=== PATIENT | female | born 1995 | race Two or more races ===

== ENCOUNTER 2018-04-24 08:49 | Emergency (ER) | payer OTHER ==
[~2018-04-24] VITALS: Ht 157.5 cm; Wt 49.9 kg
[2018-04-24] MEDS ORDERED: Sodium Chloride 500ML 500 ML IV ONE (09:31)
--- NOTE | 2018-04-24 09:43 | Emergency Room Report ---
History of Present Illness General Chief Complaint: Abdominal Pain Source: Patient Present Illness HPI 22-year-old female presents ED complaining of abdominal pain with vomiting and diarrhea. Started today. Patient states this is the first day of her period and states that sometimes she gets increased pain and diarrhea with her periods. Pain is cramping, 6 out of 10, nonradiating. Notes nausea and vomiting. Denies sick contacts or recent travel. Denies recent antibiotic use. No other aggravating relieving factors. Denies any other associated symptoms Allergies: Coded Allergies: No Known Allergies (Unverified , 04/24/18) Patient History Past Medical History: none Past Surgical History: none Pertinent Family History: none Social History: Denies: smoking, alcohol use, drug use Last Menstrual Period: 04/24/18 Now: No Immunizations: UTD Reviewed Nursing Documentation: PMH: Agreed; PSxH: Agreed Nursing Documentation-PMH Past Medical History: No History, Except For Review of Systems All Other Systems: negative except mentioned in HPI Physical Exam Vital Signs Date Time Temp Pulse Resp B/P (MAP) Pulse Ox O2 Delivery O2 Flow Rate FiO2 04/24/18 09:14 98.6 68 18 97/70 100 Room Air 98.6 Sp02 EP Interpretation: reviewed, normal General Appearance: no apparent distress, alert, GCS 15, non-toxic Head: normocephalic, atraumatic Eyes: bilateral eye normal inspection, bilateral eye PERRL ENT: hearing grossly normal, normal pharynx, no angioedema, normal voice Neck: full range of motion, supple/symm/no masses Respiratory: chest non-tender, lungs clear, normal breath sounds, speaking full sentences Cardiovascular #1: regular rate, rhythm, no edema Cardiovascular #2: 2+ carotid (R), 2+ carotid (L), 2+ radial (R), 2+ radial (L) , 2+ dorsalis pedis (R), 2+ dorsalis pedis (L) Gastrointestinal: normal bowel sounds, soft, non-distended, no guarding, no rebound, tenderness - suprapubic Rectal: deferred Genitourinary: normal inspection, no CVA tenderness Musculoskeletal: back normal, gait/station normal, normal range of motion, non- tender Neurologic: alert, oriented x3, responsive, motor strength/tone normal, sensory intact, speech normal Psychiatric: judgement/insight normal, memory normal, mood/affect normal, no suicidal/homicidal ideation Reflexes: 3+ bicep (R), 3+ bicep (L), 3+ tricep (R), 3+ tricep (L), 3+ knee (R) , 3+ knee (L) Skin: normal color, no rash, warm/dry, well hydrated Lymphatic: no adenopathy Medical Decision Making Diagnostic Impression: Primary Impression: Menstrual cramps Additional Impression: Anemia Qualified Codes: D64.9 - Anemia, unspecified ER Course Hospital Course 22-year-old F presents to ED with cramping abdominal pain with vomiting, diarrhea differential diagnosis: gastritis, SBO, cholecystits, gastroenteritis Clinical course Patient placed on stretcher. On six pack packer. After initial history and physical I ordered labs, IV fluids, GI cocktail, Zantac Labs - no leukocytosis, Hb 8.1 Hct 28, electrolytes ok, LFTs normal, UA unremarkable Upon reassessment, patient states pain has improved. Patient states his exacerbation of her menstrual cramps. Patient is somewhat anemic on lab work. Vital stable. States her period started today. States overall her periods are heavier. States that she's been told she is anemic in the past however does not know her specific lab numbers. I do not believe patient requires admission at this time however we will prescribe iron and provide [employer] referrals. Patient states she does have a PMD she can follow-up with. I feel this is a highly complex case requiring extensive working including EKG/ Rhythm strip, Xray/CT/US, Blood/urine lab work, repeat exams while in ED, and administration of strong opiates/narcotics for pain control, admission to hospital or close patient follow up. Diagnosis - menstrual cramps, anemia Stable and discharged to home with prescriptions for Zantac, zofran, bentyl, tylenol #3, ferrous sulfate. Followup with PMD/ OBGYN. Return to ED if symptoms recur or worsen Labs Test 04/24/18 09:23 04/24/18 09:35 Urine Color Yellow Urine Appearance Clear Urine pH 6 (4.5-8.0) Urine Specific [place] 1.020 (1.005-1.035) Urine Protein 1+ (NEGATIVE) Urine Glucose (UA) Negative (NEGATIVE) Urine Ketones Negative (NEGATIVE) Urine Occult Blood 5+ (NEGATIVE) Urine Nitrite Negative (NEGATIVE) Urine Bilirubin Negative (NEGATIVE) Urine Urobilinogen Normal MG/DL (0.0-1.0) Urine Leukocyte Esterase 1+ (NEGATIVE) Urine RBC 5-10 /HPF (0 - 2) Urine WBC 2-4 /HPF (0 - 2) Urine Squamous Epithelial Cells Occasional /LPF Urine Bacteria Few /HPF (NONE) Urine Mucus Few /LPF (NONE/OCC) Urine HCG, Qualitative Negative (NEGATIVE) White Blood Count 9.4 K/UL (4.8-10.8) Red Blood Count 4.31 M/UL (4.20-5.40) Hemoglobin 8.1 G/DL (12.0-16.0) Hematocrit 28.0 % (37.0-47.0) Mean Corpuscular Volume 65 FL (80-99) Mean Corpuscular Hemoglobin 18.9 PG (27.0-31.0) Mean Corpuscular Hemoglobin Concent 29.1 G/DL (32.0-36.0) Red Cell Distribution Width 16.5 % (11.6-14.8) Platelet Count 286 K/UL (150-450) Mean Platelet Volume 5.3 FL (6.5-10.1) Neutrophils (%) (Auto) 81.9 % (45.0-75.0) Lymphocytes (%) (Auto) 11.6 % (20.0-45.0) Monocytes (%) (Auto) 5.8 % (1.0-10.0) Eosinophils (%) (Auto) 0.2 % (0.0-3.0) Basophils (%) (Auto) 0.5 % (0.0-2.0) Sodium Level 139 MMOL/L (136-145) Potassium Level 3.7 MMOL/L (3.5-5.1) Chloride Level 102 MMOL/L (98-107) Carbon Dioxide Level 25 MMOL/L (21-32) Anion Gap 12 mmol/L (5-15) Blood Urea Nitrogen 12 mg/dL (7-18) Creatinine 0.6 MG/DL (0.55-1.30) Estimat Glomerular Filtration Rate > 60 mL/min (>60) Glucose Level 100 MG/DL (74-106) Calcium Level 8.5 MG/DL (8.5-10.1) Total Bilirubin 0.2 MG/DL (0.2-1.0) Aspartate Amino Transf (AST/SGOT) 17 U/L (15-37) Alanine Aminotransferase (ALT/SGPT) 21 U/L (12-78) Alkaline Phosphatase 48 U/L (46-116) Total Protein 8.0 G/DL (6.4-8.2) Albumin 4.1 G/DL (3.4-5.0) Globulin 3.9 g/dL Albumin/Globulin Ratio 1.1 (1.0-2.7) Lipase 107 U/L (73-393) Last Vital Signs Date Time Temp Pulse Resp B/P (MAP) Pulse Ox O2 Delivery O2 Flow Rate FiO2 04/24/18 09:14 98.6 68 18 97/70 100 Room Air 98.6 Status: improved Disposition: HOME, SELF-CARE Condition: Stable Scripts Acetaminophen With Codeine (T#3) (TYLENOL #3 TAB*) Y Tab 1 TAB ORAL Q4H PRN for For Pain, #20 TAB Prov: Gerber David MD 04/24/18 Ondansetron Odt* (ZOFRAN ODT*) 4 Mg Tab.rapdis 4 MG BC EVERY 6 HOURS PRN for Nausea & Vomiting, #30 TAB 0 Refills Prov: Gerber David MD 04/24/18 Ranitidine Hcl* (ZANTAC*) 150 Mg Tablet 150 MG ORAL TWICE A DAY, #30 TAB Prov: Gerber David MD 04/24/18 Dicyclomine Hcl* (DICYCLOMINE HCL*) 10 Mg Capsule 10 MG PO QID, #20 CAP Prov: Gerber David MD 04/24/18 Ferrous Sulfate* (FERROUS SULFATE*) 325 Mg Tablet 325 MG ORAL DAILY, #30 TAB 0 Refills Prov: Gerber David MD 04/24/18 Gerber David MD Apr 24, 2018 09:43
[2018-04-24] MEDS ORDERED: Mylanta II UD 30ml ORAL ONE (09:45)
[2018-04-24] MEDS ORDERED: Lidocaine 2% Visc 15ml soln ORAL ONE (09:45)
[2018-04-24] MEDS ORDERED: Dicyclomine HCl 10mg/5ml oral soln ORAL ONE (09:45)
[2018-04-24 09:47] LABS: APPEARANCE,URINE CLEAR; BILIRUBIN, URINE NEGATIVE (NEGATIVE); GLUCOSE, URINE (UA) NEGATIVE (NEGATIVE); KETONES,URINE NEGATIVE (NEGATIVE); LEUKOCYTE ESTERASE ,URINE 1+ (NEGATIVE); NITRITE,URINE NEGATIVE (NEGATIVE); PH,URINE 6 (4.5-8.0); PROTEIN,URINE 1+ (NEGATIVE); UROBILINOGEN,URINE NORMAL MG/DL (0.0-1.0)
[2018-04-24 09:48] VITALS: BP 91/68
[2018-04-24 09:52] LABS: COLOR,URINE YELLOW
[2018-04-24 09:55] LABS: BASOPHILS % (AUTO) 0.5 % (0.0-2.0); EOSINOPHILS % (AUTO) 0.2 % (0.0-3.0); HEMOGLOBIN 8.1 G/DL (12.0-16.0); LYMPHOCYTES % (AUTO) 11.6 % (20.0-45.0); MEAN CORPUSCULAR VOLUME 65 FL (80-99); MONOCYTES % (AUTO) 5.8 % (1.0-10.0); NEUTROPHILS % (AUTO) 81.9 % (45.0-75.0); PLATELET COUNT 286 K/UL (150-450); RED BLOOD COUNT 4.31 M/UL (4.20-5.40); RED CELL DISTRIBUTION WIDTH 16.5 % (11.6-14.8); WHITE BLOOD COUNT 9.4 K/UL (4.8-10.8)
[2018-04-24 10:00] LABS: ANION GAP 12 mmol/L (5-15); BLOOD UREA NITROGEN 12 mg/dL (7-18); CALCIUM 8.5 MG/DL (8.5-10.1); CARBON DIOXIDE 25 MMOL/L (21-32); CHLORIDE 102 MMOL/L (98-107); CREATININE 0.6 MG/DL (0.55-1.30); POTASSIUM 3.7 MMOL/L (3.5-5.1); SODIUM 139 MMOL/L (136-145)
[2018-04-24 10:05] LABS: ALANINE AMINOTRANSFERASE 21 U/L (12-78); ALBUMIN 4.1 G/DL (3.4-5.0); ALBUMIN/GLOBULIN RATIO 1.1 (1.0-2.7); ALKALINE PHOSPHATASE 48 U/L (46-116); ASPARTATE AMINO TRANSFERASE 17 U/L (15-37); BILIRUBIN,TOTAL 0.2 MG/DL (0.2-1.0)
[2018-04-24 10:28] VITALS: BP 96/71
[2018-04-24] MEDS ORDERED: ACETAMINOPHEN-1 EAC1 ORAL (10:31)
[2018-04-24] MEDS ORDERED: FERROUS SULFAT325 MG ORAL (10:31)
[2018-04-24] MEDS ORDERED: DICYCLOMINE HCL10 MG PO (10:31)
[2018-04-24] MEDS ORDERED: ONDANSETRON ODT4 MG BC (10:31)
[2018-04-24] MEDS ORDERED: RANITIDINE HCL150 MG ORAL (10:31)
[2018-04-24 10:38] VITALS: BP 96/71
== END 2018-04-24 10:40 | disposition home or self-care (01) ==
LOC: EMR 10:07
DX: N94.6 Dysmenorrhea, unspecified (principal); D64.9 Anemia, unspecified; R19.7 Diarrhea, unspecified; R11.10 Vomiting, unspecified
CPT/HCPCS: 36415; 80053; 81003; 81025; 83690; 85025; 96374; 96375; 99284; J2405; J7040; S0028

== ENCOUNTER 2018-05-15 01:37 | Emergency (ER) | payer OTHER ==
[~2018-05-15] VITALS: Ht 154.9 cm; Wt 45.4 kg
[~2018-05-15 01:37] MED LIST: ACETAMINOPHEN-1 EAC1 ORAL; DICYCLOMINE HCL10 MG PO; FERROUS SULFAT325 MG ORAL; ONDANSETRON ODT4 MG BC; RANITIDINE HCL150 MG ORAL
[2018-05-15 01:59] VITALS: BP 104/69
[2018-05-15] MEDS ORDERED: Ketorolac 30mg Inj IV ONE (02:00)
[2018-05-15] MEDS ORDERED: Isovue-300 100ml vial INJ PRN (02:00)
--- NOTE | 2018-05-15 02:02 | Emergency Room Report ---
History of Present Illness General Chief Complaint: Abdominal Pain Source: Patient Present Illness HPI Is a 22-year-old female with no significant past medical history. She presents with acute onset of lower quadrant abdominal pain about 30-40 minutes ago. Pain is sharp 10 out of 10 and comes in waves. Never had this problem before. No nausea no vomiting. Denies any trauma. She had midcycle. No nausea no vomiting. No diarrhea. No urinary complaint. No vaginal bleeding or discharge. Allergies: Coded Allergies: No Known Allergies (Unverified , 05/15/18) Patient History Past Medical History: see triage record, old chart reviewed Past Surgical History: none Pertinent Family History: none Social History: Denies: smoking Last Menstrual Period: 3 weeks ago Now: No Immunizations: other Reviewed Nursing Documentation: PMH: Agreed; PSxH: Agreed Nursing Documentation-PMH Past Medical History: No History, Except For Review of Systems Eye: Denies: eye pain, blurred vision ENT: Denies: ear pain, nose congestion, throat swelling Respiratory: Denies: cough, shortness of breath Cardiovascular: Denies: chest pain, palpitations Gastrointestinal: Reports: abdominal pain; Denies: diarrhea, nausea, vomiting Musculoskeletal: Denies: back pain, joint pain Skin: Denies: rash Neurological: Denies: headache, numbness Endocrine: Denies: increased thirst, increased urine Hematologic/Lymphatic: Denies: easy bruising All Other Systems: negative except mentioned in HPI Physical Exam Vital Signs Date Time Temp Pulse Resp B/P (MAP) Pulse Ox O2 Delivery O2 Flow Rate FiO2 05/15/18 01:51 97.7 69 26 103/72 100 Room Air 97.7 vitals unremarkable Sp02 EP Interpretation: reviewed, normal General Appearance: well appearing, no apparent distress, alert Head: normocephalic, atraumatic Eyes: bilateral eye PERRL, bilateral eye EOMI ENT: hearing grossly normal, normal pharynx Neck: full range of motion, supple, no meningismus Respiratory: chest non-tender, lungs clear, normal breath sounds Cardiovascular #1: regular rate, rhythm, no murmur Gastrointestinal: normal bowel sounds, no mass, no organomegaly, no bruit, non- distended, tenderness Musculoskeletal: back normal, gait/station normal, normal range of motion Neurologic: alert, oriented x3 Psychiatric: anxious Skin: warm/dry Medical Decision Making Diagnostic Impression: Primary Impression: Abdominal pain Qualified Codes: R10.30 - Lower abdominal pain, unspecified Additional Impressions: UTI (urinary tract infection) Qualified Codes: N30.00 - Acute cystitis without hematuria Ovarian cyst Qualified Codes: N83.209 - Unspecified ovarian cyst, unspecified side Anemia Qualified Codes: D64.9 - Anemia, unspecified ER Course Patient presents with abdominal pain. Most likely a small ovarian cyst rupture. No evidence of acute abdomen. No evidence of appendicitis. No obstruction. No evidence of ectopic or TOA. She is better now. We'll discharge home. Lab Results Impression labs unremarkable CT/MRI/US Diagnostic Results CT/MRI/US Diagnostic Results : Imaging Test Ordered: CT abdomen and pelvis Impression Read by radiologist. Large amount of stool. Trace free fluid in the cul-de- sac. 2 cm right ovarian cyst. No appendicitis. Last Vital Signs Date Time Temp Pulse Resp B/P (MAP) Pulse Ox O2 Delivery O2 Flow Rate FiO2 05/15/18 01:51 97.7 69 26 103/72 100 Room Air 97.7 Status: improved Disposition: HOME, SELF-CARE Condition: Stable Scripts Ibuprofen* (MOTRIN*) 600 Mg Tablet 600 MG ORAL Q8H PRN for For Pain, #30 TAB 0 Refills Prov: AARON CAMP M.D. 05/15/18 Additional Instructions: Follow-up with your in 2-3 days of not better. Return if worse. AARON CAMP M.D. May 15, 2018 02:02
[2018-05-15 02:11] LABS: APPEARANCE,URINE CLEAR; BILIRUBIN, URINE NEGATIVE (NEGATIVE); COLOR,URINE PALE YELLOW; GLUCOSE, URINE (UA) NEGATIVE (NEGATIVE); KETONES,URINE NEGATIVE (NEGATIVE); NITRITE,URINE NEGATIVE (NEGATIVE); PH,URINE 7 (4.5-8.0); PROTEIN,URINE NEGATIVE (NEGATIVE); UROBILINOGEN,URINE NORMAL MG/DL (0.0-1.0)
[2018-05-15 02:30] LABS: LEUKOCYTE ESTERASE ,URINE 2+ (NEGATIVE)
[2018-05-15 02:32] LABS: BASOPHILS % (AUTO) 0.6 % (0.0-2.0); EOSINOPHILS % (AUTO) 0.9 % (0.0-3.0); HEMATOCRIT 31.7 % (37.0-47.0); LYMPHOCYTES % (AUTO) 53.2 % (20.0-45.0); MEAN CORPUSCULAR VOLUME 66 FL (80-99); MONOCYTES % (AUTO) 6.7 % (1.0-10.0); NEUTROPHILS % (AUTO) 38.6 % (45.0-75.0); PLATELET COUNT 247 K/UL (150-450); RED BLOOD COUNT 4.82 M/UL (4.20-5.40); RED CELL DISTRIBUTION WIDTH 18.4 % (11.6-14.8); WHITE BLOOD COUNT 6.9 K/UL (4.8-10.8)
[2018-05-15 02:38] LABS: ANION GAP 11 mmol/L (5-15); BLOOD UREA NITROGEN 12 mg/dL (7-18); CARBON DIOXIDE 24 MMOL/L (21-32); CHLORIDE 103 MMOL/L (98-107); CREATININE 0.7 MG/DL (0.55-1.30); POTASSIUM 3.3 MMOL/L (3.5-5.1); SODIUM 138 MMOL/L (136-145)
[2018-05-15 02:44] LABS: ALANINE AMINOTRANSFERASE 19 U/L (12-78); ALBUMIN 4.2 G/DL (3.4-5.0); ALBUMIN/GLOBULIN RATIO 1.1 (1.0-2.7); ALKALINE PHOSPHATASE 51 U/L (46-116); ASPARTATE AMINO TRANSFERASE 14 U/L (15-37); BILIRUBIN,TOTAL 0.2 MG/DL (0.2-1.0)
[2018-05-15] MEDS ORDERED: IBUPROFEN600 MG ORAL (03:49)
[2018-05-15 03:50] VITALS: BP 96/58
[2018-05-15] MEDS ORDERED: MACROBID100 MG ORAL (03:54)
[2018-05-15 04:00] VITALS: BP 96/58
--- NOTE | 2018-05-15 10:01 | Diagnostic Imaging Report ---
Clinical Indication: Mid abdominal pain for one hour Technique: No oral contrast utilized, per emergency room physician request IV administration nonionic contrast. Venous phase spiral acquisition obtained through the abdomen and pelvis. Multiplanar reconstructions were generated. Total dose length product 534.88 mGycm. CTDIvol(s) 10.55 mGy. Dose reduction achieved using automated exposure control Comparison: none Findings: The appendix is normal. Small bowel loops are nondilated. There is no evidence of diverticulosis or diverticulitis. There is a small amount of free pelvic fluid. No free intraperitoneal gas. Distal esophagus, stomach, duodenum are unremarkable. The gallbladder is contracted. The liver, bile ducts, pancreas, spleen, adrenals are unremarkable. There is a bicornuate uterus. Myometrial enhancement is somewhat heterogeneous. There is suggestion of a collapsed follicle in the right ovary. The ovaries are otherwise unremarkable. No pelvic mass or adenopathy. The bladder demonstrates diffuse wall thickening. It is incompletely distended. Included lung bases are clear. The bones are unremarkable. Impression: Equivocal bladder wall thickening, most likely artifact of under distention, but cystitis is a possibility Free pelvic fluid, presumably physiologic Possible partially collapsed right ovarian cyst This agrees with the preliminary interpretation provided overnight by [facility] teleradiology service. The CT scanner at [facility] is accredited by the [employer] and the scans are performed using protocols designed to limit radiation exposure to as low as reasonably achievable to attain images of sufficient resolution adequate for diagnostic evaluation.
== END 2018-05-15 04:00 | disposition home or self-care (01) ==
LOC: EMR 02:00
DX: N83.209 Unspecified ovarian cyst, unspecified side (principal); N30.00 Acute cystitis without hematuria; D64.9 Anemia, unspecified
CPT/HCPCS: 36415; 74177; 80053; 81003; 81025; 83690; 85025; 87086; 96361; 96374; 99284; J1885; Q9967

== ENCOUNTER 2018-08-21 12:35 | Emergency (ER) | payer OTHER ==
[~2018-08-21] VITALS: Ht 157.5 cm; Wt 49.9 kg
[~2018-08-21 12:35] MED LIST changes: +IBUPROFEN600 MG ORAL; +MACROBID100 MG ORAL
[2018-08-21 12:43] VITALS: BP 121/78
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
[2018-08-21] MEDS ORDERED: Methocarbamol 500mg tab ORAL ONE (13:15)
[2018-08-21] MEDS ORDERED: Acetaminophen 500mg (ES) tab ORAL ONE (13:15)
[2018-08-21] MEDS ORDERED: TYLENOL EXTRA500 MG ORAL (13:55)
[2018-08-21] MEDS ORDERED: LIDOCAINE700 M1 TP (13:55)
[2018-08-21] MEDS ORDERED: ROBAXIN500 MG PO (13:55)
--- NOTE | 2018-08-21 14:02 | Diagnostic Imaging Report ---
Indication: Right wrist pain Findings: 3 views of the right wrist were obtained. No acute fractures, malalignment, erosions or periostitis are identified. Soft tissues are unremarkable. Impression: No acute findings.
--- NOTE | 2018-08-21 14:03 | Diagnostic Imaging Report ---
Indication: Left wrist pain Findings: 3 views of the left wrist were obtained. No acute fractures, malalignment, erosions or periostitis are identified. Soft tissues are unremarkable. Impression: No acute findings.
[2018-08-21 14:27] VITALS: BP 121/78
== END 2018-08-21 14:05 | disposition home or self-care (01) ==
LOC: EMR 13:03
DX: S63.502A Unspecified sprain of left wrist, initial encounter (principal); S63.501A Unspecified sprain of right wrist, initial encounter; V43.52XA Car driver injured in collision with other type car in traffic accident, initial encounter; Y92.410 Unspecified street and highway as the place of occurrence of the external cause
CPT/HCPCS: 99284

== ENCOUNTER 2019-01-08 20:53 | Emergency (ER) | payer OTHER ==
[~2019-01-08] VITALS: Ht 154.9 cm; Wt 47.6 kg
[~2019-01-08 20:53] MED LIST changes: +LIDOCAINE700 M1 TP; +ROBAXIN500 MG PO; +TYLENOL EXTRA500 MG ORAL
--- NOTE | 2019-01-08 21:15 | NUR ---
ED Nurse Note: RECIEVED PT FROM HOME, WITH C/O ABD PAIN WITH VOMITING SINCE THE WEEKEND, PT IS HOLDING STOMACH AND C/O PAIN AT 9/10, ACHING TO BACK AREA, PT DENEIS CP, SOB, OR ANY OTHER COMPLAINTS, PT IS AMBULATORY, ASSISTED TO GOWNING AND PALCED ON MONNTORING, WILL RESUME CARE ORDERD AND CONTINUE TO CLOSELY MONITOR.
--- NOTE | 2019-01-08 21:19 | Emergency Room Report ---
History of Present Illness General Chief Complaint: Abdominal Pain Source: Patient Present Illness HPI Patient presents with complaints of epigastric and bilateral upper abdominal pain Ongoing since about 7:00 this morning Patient reports increased cramping now denies any fevers however subjectively felt somewhat warm Denies any chest pain or shortness of breath denies any lower abdominal pain Denies any dysuria frequency Denies any recent travel pain is 5 out of 10 cramping in sensation Allergies: Coded Allergies: No Known Allergies (Unverified , 05/15/18) Patient History Past Medical History: see triage record Pertinent Family History: none Last Menstrual Period: 01/02/19 : 0 Para: 0 Reviewed Nursing Documentation: PMH: Agreed; PSxH: Agreed Nursing Documentation-PMH Past Medical History: No History, Except For Review of Systems All Other Systems: negative except mentioned in HPI Physical Exam Vital Signs Date Time Temp Pulse Resp B/P (MAP) Pulse Ox O2 Delivery O2 Flow Rate FiO2 01/08/19 20:57 99.1 125 18 119/72 98 Room Air Sp02 EP Interpretation: reviewed, normal General Appearance: well appearing, no apparent distress Head: normocephalic, atraumatic Eyes: bilateral eye PERRL, bilateral eye EOMI ENT: hearing grossly normal, normal pharynx, TMs + canals normal, uvula midline Neck: full range of motion, supple, no meningismus, no bony tend Respiratory: lungs clear, normal breath sounds, no rhonchi, no respiratory distress, no retraction, no accessory muscle use Cardiovascular #1: normal peripheral pulses, regular rate, rhythm, no edema, no gallop, no JVD, no murmur Gastrointestinal: normal bowel sounds, non tender - However subjectively points to the epigastric region, soft, no mass, no organomegaly, non-distended, no guarding, no hernia, no pulsatile mass, no rebound Genitourinary: no CVA tenderness Musculoskeletal: normal inspection Neurologic: oriented x3, responsive, 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, motor strength/ tone normal, sensory intact Psychiatric: mood/affect normal Skin: normal color, no rash, warm/dry, palpation normal Lymphatic: normal inspection, no adenopathy Medical Decision Making Diagnostic Impression: Primary Impression: Abdominal pain ER Course With the patient's history and examination, multiple differentials considered, including but not limited to , ectopic , ovarian torsion, gastritis, cholecystitis, pancreatitis, appendicitis Patient's blood work looks appropriate however patient started having more pain during the workup Therefore ultrasound was obtained which does not show any acute disease Patient now resting comfortably and is stable for close outpatient follow-up Labs Test 01/08/19 21:15 White Blood Count 8.4 K/UL (4.8-10.8) Red Blood Count 4.47 M/UL (4.20-5.40) Hemoglobin 9.2 G/DL (12.0-16.0) Hematocrit 30.9 % (37.0-47.0) Mean Corpuscular Volume 69 FL (80-99) Mean Corpuscular Hemoglobin 20.6 PG (27.0-31.0) Mean Corpuscular Hemoglobin Concent 29.9 G/DL (32.0-36.0) Red Cell Distribution Width 16.3 % (11.6-14.8) Platelet Count 281 K/UL (150-450) Mean Platelet Volume 4.5 FL (6.5-10.1) Neutrophils (%) (Auto) % (45.0-75.0) Lymphocytes (%) (Auto) % (20.0-45.0) Monocytes (%) (Auto) % (1.0-10.0) Eosinophils (%) (Auto) % (0.0-3.0) Basophils (%) (Auto) % (0.0-2.0) Differential Total Cells Counted 100 Neutrophils % (Manual) 93 % (45-75) Lymphocytes % (Manual) 7 % (20-45) Monocytes % (Manual) 0 % (1-10) Eosinophils % (Manual) 0 % (0-3) Basophils % (Manual) 0 % (0-2) Band Neutrophils 0 % (0-8) Platelet Estimate Adequate Platelet Morphology Normal Anisocytosis 1+ Microcytosis 2+ Urine Color Yellow Urine Appearance Slightly cloudy Urine pH 5 (4.5-8.0) Urine Specific [place] 1.020 (1.005-1.035) Urine Protein 2+ (NEGATIVE) Urine Glucose (UA) Negative (NEGATIVE) Urine Ketones 4+ (NEGATIVE) Urine Blood 2+ (NEGATIVE) Urine Nitrite Negative (NEGATIVE) Urine Bilirubin 1+ (NEGATIVE) Urine Ictotest Negative (NEGATIVE) Urine Urobilinogen 1 MG/DL (0.0-1.0) Urine Leukocyte Esterase 1+ (NEGATIVE) Urine RBC 2-4 /HPF (0 - 2) Urine WBC 2-4 /HPF (0 - 2) Urine Squamous Epithelial Cells Few /LPF (NONE/OCC) Urine Bacteria Few /HPF (NONE) Urine Mucus Moderate /LPF (NONE/OCC) Urine HCG, Qualitative Negative (NEGATIVE) Sodium Level 138 MMOL/L (136-145) Potassium Level 3.5 MMOL/L (3.5-5.1) Chloride Level 100 MMOL/L (98-107) Carbon Dioxide Level 25 MMOL/L (21-32) Anion Gap 13 mmol/L (5-15) Blood Urea Nitrogen 18 mg/dL (7-18) Creatinine 0.8 MG/DL (0.55-1.30) Estimat Glomerular Filtration Rate > 60 mL/min (>60) Glucose Level 91 MG/DL (74-106) Calcium Level 9.1 MG/DL (8.5-10.1) Total Bilirubin 0.6 MG/DL (0.2-1.0) Aspartate Amino Transf (AST/SGOT) 16 U/L (15-37) Alanine Aminotransferase (ALT/SGPT) 20 U/L (12-78) Alkaline Phosphatase 70 U/L (46-116) Total Protein 8.6 G/DL (6.4-8.2) Albumin 4.6 G/DL (3.4-5.0) Globulin 4.0 g/dL Albumin/Globulin Ratio 1.1 (1.0-2.7) Lipase 83 U/L (73-393) CT/MRI/US Diagnostic Results CT/MRI/US Diagnostic Results : Impression abdominal ultrasound no acute disease Last Vital Signs Date Time Temp Pulse Resp B/P (MAP) Pulse Ox O2 Delivery O2 Flow Rate FiO2 01/08/19 20:57 99.1 125 18 119/72 98 Room Air Status: improved Disposition: HOME, SELF-CARE Condition: Improved Scripts Famotidine (PEPCID AC) 20 Mg Tablet 20 MG PO DAILY for 14 Days, TAB Prov: Vj Peoples DO 01/08/19 Additional Instructions: Patient is provided with the discharge instructions notified to follow up with primary doctor in the next 2-3 days otherwise return to the er with any worsening symptoms. Please note that this report is being documented using [employer] technology. This can lead to erroneous entry secondary to incorrect interpretation by the dictating instrument. Vj Peoples DO Jan 08, 2019 21:19
[2019-01-08] MEDS ORDERED: Metoclopramide 10mg/2ml Inj IVP ONE (21:30)
[2019-01-08] MEDS ORDERED: DiphenhydrAMINE 50mg/ml Inj IVP ONE (21:30)
[2019-01-08 21:40] LABS: APPEARANCE,URINE SLIGHTLY CLOUDY; BILIRUBIN, URINE 1+ (NEGATIVE); GLUCOSE, URINE (UA) NEGATIVE (NEGATIVE); HEMATOCRIT 30.9 % (37.0-47.0); HEMOGLOBIN 9.2 G/DL (12.0-16.0); KETONES,URINE 4+ (NEGATIVE); LEUKOCYTE ESTERASE ,URINE 1+ (NEGATIVE); MEAN CORPUSCULAR VOLUME 69 FL (80-99); NITRITE,URINE NEGATIVE (NEGATIVE); PH,URINE 5 (4.5-8.0); PLATELET COUNT 281 K/UL (150-450); PROTEIN,URINE 2+ (NEGATIVE); RED BLOOD COUNT 4.47 M/UL (4.20-5.40); RED CELL DISTRIBUTION WIDTH 16.3 % (11.6-14.8); UROBILINOGEN,URINE 1 MG/DL (0.0-1.0); WHITE BLOOD COUNT 8.4 K/UL (4.8-10.8)
[2019-01-08 21:43] LABS: COLOR,URINE YELLOW
[2019-01-08 21:49] LABS: ANION GAP 13 mmol/L (5-15); BLOOD UREA NITROGEN 18 mg/dL (7-18); CALCIUM 9.1 MG/DL (8.5-10.1); CARBON DIOXIDE 25 MMOL/L (21-32); CHLORIDE 100 MMOL/L (98-107); CREATININE 0.8 MG/DL (0.55-1.30); POTASSIUM 3.5 MMOL/L (3.5-5.1); SODIUM 138 MMOL/L (136-145)
[2019-01-08 21:53] LABS: ALANINE AMINOTRANSFERASE 20 U/L (12-78); ALBUMIN 4.6 G/DL (3.4-5.0); ALBUMIN/GLOBULIN RATIO 1.1 (1.0-2.7); ALKALINE PHOSPHATASE 70 U/L (46-116); ASPARTATE AMINO TRANSFERASE 16 U/L (15-37); BILIRUBIN,TOTAL 0.6 MG/DL (0.2-1.0)
[2019-01-08 22:00] VITALS: BP 124/74
[2019-01-08] MEDS ORDERED: Morphine Sulfate 4mg/ml Inj (IV USE ONLY) IVP ONE (22:00)
[2019-01-08] MEDS ORDERED: PEPCID AC20 M2 PO (23:04)
[2019-01-08 23:05] VITALS: BP 111/67
--- NOTE | 2019-01-08 23:15 | NUR ---
ED Nurse Note: PT MEDS GIVEN FOR PAIN EFFECTIVE, PT AIN AT 12/24, PT NAUSEA RESOLVED, NO CP, NO SOB, PT IS BEING D/C TO HOME, GIVEN F/U INFO AND AFTER CARE INSTRUCTONS, PT RE-VERBALIZES PROPER MEDICATION ADMINNISTRATION AND S/S TO MONITOR FOR. PT ARMBAND AND IV LINE REMOVED WITHOUT COMPLICATIONS, NAD NOTED DURING D/C TO HOME.
[2019-01-08 23:25] VITALS: BP 111/67
--- NOTE | 2019-01-09 19:15 | Diagnostic Imaging Report ---
Indication:Abdominal pain Technique: Grayscale and duplex Doppler imaging of the abdomen performed. Comparison: None Findings: The liver is unremarkable. The gallbladder is unremarkable. The demonstrated part of the pancreas, aorta and IVC show no abnormalities.'S CBD is 2.4 mm. Both kidneys appear unremarkable. The spleen is normal in size. There is no biliary ductal dilatation identified. Doppler evaluation of the main portal vein shows patency. There is no ascites. No hydronephrosis seen. Impression: No acute findings.
== END 2019-01-08 23:46 | disposition home or self-care (01) ==
LOC: EMR 21:12
DX: R10.13 Epigastric pain (principal)
CPT/HCPCS: 36415; 76700; 80053; 81003; 81025; 83690; 85007; 85025; 96361; 96374; 96375; 99284; J1200; J2270; J2405; J2765